=== PATIENT | female | born 1990 | race Caucasian/White ===

== ENCOUNTER → 2016-12-23 | Outpatient (CLI) | payer OTHER ==
[~2016-12-23] MED LIST: ABILIFY10 MG PO; ALBUTEROL0.09 MG/A2 IH; AMOXICILLIN500 MG PO; AMOXIL500 MG PO; BENADRYL25 M1 PO; CELEXA10 MG PO; CIPRO500 MG PO; CLARITIN-D 10 M1 T21 PO; CLEOCIN150 MG PO; CYCLOBENZAPRINE10 MG PO; DARVOCET N 1001 TAB PO; HYDROCODONE BIT1 T11 PO; LOMOTIL 0.025 M1 TA1 PO; MACRODANTIN100 M1 PO; MOTRIN600 MG PO; MOTRIN800 MG PO; NAPROSYN500 MG PO; NKHM PO; OVRAL-21 50 MCG1 TAB PO; PHENERGAN25 MG RC; PREDNICOT20 MG PO; PRILOSEC20 MG PO; PYRIDIUM200 M1 PO; SPRINTEC 35 MCG1 TA1 PO; ULTRAM50 MG PO; VICODIN 5/500 505 MG PO; ZITHROMAX Z PA250 MG PO; ZOFRAN ODT4 MG SL; ZOFRAN4 MG PO
[2016-12-23 12:44] LABS: BASO % 0.5 % (0.0-1.0); EOS # 0.6 10*3/uL (0.0-0.4); EOS % 7.2 % (1.0-4.0); HEMOGLOBIN 14.5 g/dl (12.0-16.0); LYMPH # 3.5 10*3/uL (1.3-4.4); LYMPH % 41.3 % (27.0-41.0); MEAN CELL VOLUME 91.7 fl (81.0-99.0); MEAN CORPUSCULAR HGB 30.9 pg (27.0-31.0); MEAN CORPUSCULAR HGB CONC 33.7 g/dl (33.0-37.0); MEAN PLATELET VOLUME 9.9 fl (9.6-12.3); MONO # 0.8 10*3/uL (0.1-1.0); MONO % 9.7 % (3.0-9.0); NEUT # 3.5 10*3/uL (2.3-7.9); NEUT % 41.1 % (47.0-73.0); PLATELET COUNT AUTOMATED 280 10*3/uL (130-400); RED BLOOD COUNT 4.69 10*6/uL (4.10-5.10); WHITE BLOOD COUNT 8.5 10*3/uL (4.8-10.8)
[2016-12-23 13:07] LABS: ALBUMIN 3.8 gm/dl (3.1-4.5); ALKALINE PHOSPHATASE 82 U/L (45-117); BUN 9 mg/dl (7-24); CHLORIDE 106 mmol/L (98-107); CHOLESTEROL 222 mg/dL (<200); CREATININE 0.93 mg/dL (0.55-1.02); HDL CHOLESTEROL 46 mg/dl (40-60); LDL CHOLESTEROL 153 mg/dL (9-159); SGOT/AST 18 IU/L (3-35); SGPT/ALT 23 U/L (12-78); SODIUM 140 mmol/L (136-145); TRIGLYCERIDES 116 mg/dl (<150); VLDL CHOLESTEROL 23 mg/dL (6-40)
== END | disposition home or self-care (01) ==
LOC: LAB 12:19
PROVIDERS: Psychiatry & Neurology Psychiatry
DX: F63.9 Impulse disorder, unspecified (principal); R63.5 Abnormal weight gain; R73.09 Other abnormal glucose

== ENCOUNTER → 2017-04-14 | Outpatient (CLI) | payer OTHER ==
[2017-04-14 10:53] LABS: BUN 10 mg/dl (7-24); CREATININE 0.95 mg/dL (0.55-1.02)
== END | disposition home or self-care (01) ==
LOC: LAB 10:14 → MRI 11:00
PROVIDERS: Psychiatry & Neurology Neurology
DX: Z13.89 Encounter for screening for other disorder (principal); R41.3 Other amnesia; R20.0 Anesthesia of skin; R20.2 Paresthesia of skin; R51 Headache

== ENCOUNTER → 2017-04-27 | Outpatient (CLI) | payer OTHER ==
--- NOTE | ~2017-04-27 | EEG ---
[place], [place] ELECTROENCEPHALOGRAM REPORT NAME: BOBY VALLECILLO UNIT #: [id number] ROOM: DOCTOR: SIRI LESTER, CHARMAINE ANDERSON DOS: 04/27/2017 EEG REPORT This 26-year-old woman on Zantac and Symbyax displayed the following underlying rhythms: Very well organized, synchronous, 10 Hz, 30 microvolt alpha rhythms in both posterior regions. 18 Hz, 10 microvolt beta rhythms were noted in both precentral regions. There was symmetrical attenuation of posterior alpha rhythms with eye opening. There was limited hyperventilation which produced no significant abnormalities. There was minimal driving to photic stimulation, again without abnormalities. The patient did become drowsy, progressing through stage I of somnolence. Throughout this recording, there were no focal abnormalities or epileptiform activity. IMPRESSION: Normal awake EEG. Clinical correlation was highly advised. CHARMAINE HORNER MD CM:EEG:ELECTROENCEPHALOGRAM REPORT [id number] [id number] CHARMAINE HORNER MD, JR
== END | disposition home or self-care (01) ==
LOC: CP 00:52
DX: R41.3 Other amnesia (principal)

== ENCOUNTER 2018-05-21 06:01 | Emergency (ER) | payer OTHER ==
[~2018-05-21] VITALS: Ht 162.5 cm; Wt 81.6 kg
[2018-05-21] MEDS ORDERED: Carafate1 GM PO (06:06)
[2018-05-21] MEDS ORDERED: OMEPRAZOLE40 MG PO (06:06)
[2018-05-21] MEDS ORDERED: LAMOTRIGINE100 MG PO (06:07)
[2018-05-21] MEDS ORDERED: ROBITUSSIN DM 105 ML PO (06:37)
[2018-05-21] MEDS ORDERED: ZITHROMAX250 MG PO (06:37)
[2018-05-21] MEDS ORDERED: ATIVAN1 MG PO (07:14)
== END 2018-05-21 07:15 | disposition home or self-care (01) ==
LOC: ED 06:01
DX: J40 Bronchitis, not specified as acute or chronic (principal); F41.9 Anxiety disorder, unspecified; F43.10 Post-traumatic stress disorder, unspecified; F17.200 Nicotine dependence, unspecified, uncomplicated; Z79.899 Other long term (current) drug therapy

== ENCOUNTER 2018-05-21 21:06 | Emergency (ER) | payer OTHER ==
[~2018-05-21] VITALS: Ht 162.5 cm
--- NOTE | ~2018-05-21 | EKG ---
[place], [place] ELECTROCARDIOGRAM REPORT NAME: BOBY VALLECILLO UNIT #: [id number] ROOM: DOCTOR: EPIPHANY DRAFT REPORT BIRTHDATE: [birth year] [facility] Test Date: 2018-05-21 Test Time: 21:17:25 Pat Name: BOBY VALLECILLO Department: Room: Gender: F Chrome Tanner: a[place]ty [place] : 1990 Requested By: ALESSANDRO PARIKH Order Number: [id number] Reading MD: Hernando Reyes MD Measurements Intervals [place] Rate: 112 P: 65 ID: [id number] QRS: 43 QRSD: 73 T: 20 QT: 307 QTc: 419 Interpretive Statements Sinus tachycardia Probable left atrial enlargement Electronically Signed On 05-23-2018 4:40:38 PST by Hernando Reyes MD CM:EKGRPT:ELECTROCARDIOGRAM REPORT [id number] ALESSANDRO AGUILAR DRAFT REPORT ALESSANDRO PARIKH DO
[~2018-05-21 21:06] MED LIST changes: +ATIVAN1 MG PO; +Carafate1 GM PO; +LAMOTRIGINE100 MG PO; +OMEPRAZOLE40 MG PO; +ROBITUSSIN DM 105 ML PO; +ZITHROMAX250 MG PO
[2018-05-21 21:27] LABS: BASO # 0.1 10*3/uL (0.0-0.1); BASO % 0.3 % (0.0-1.0); EOS # 0.3 10*3/uL (0.0-0.4); HEMATOCRIT 42.2 % (37.0-47.0); HEMOGLOBIN 14.2 g/dl (12.0-16.0); LYMPH # 2.4 10*3/uL (1.3-4.4); LYMPH % 16.7 % (27.0-41.0); MEAN CELL VOLUME 89.2 fl (81.0-99.0); MEAN CORPUSCULAR HGB CONC 33.6 g/dl (33.0-37.0); MEAN PLATELET VOLUME 9.4 fl (9.6-12.3); MONO # 1.5 10*3/uL (0.1-1.0); MONO % 10.1 % (3.0-9.0); NEUT # 10.1 10*3/uL (2.3-7.9); NEUT % 70.6 % (47.0-73.0); PLATELET COUNT AUTOMATED 317 10*3/uL (130-400); RED BLOOD COUNT 4.73 10*6/uL (4.10-5.10); RED CELL DISTRI WIDTH 13.4 % (0-14.5); WHITE BLOOD COUNT 14.3 10*3/uL (4.8-10.8)
[2018-05-21 21:44] LABS: ALBUMIN 3.9 gm/dl (3.1-4.5); ALKALINE PHOSPHATASE 109 U/L (45-117); BUN 8 mg/dl (7-24); CHLORIDE 107 mmol/L (98-107); CREATININE 0.92 mg/dL (0.55-1.02); POTASSIUM 3.7 mmol/L (3.5-5.1); SGOT/AST 11 IU/L (3-35); SGPT/ALT 22 U/L (12-78); SODIUM 139 mmol/L (136-145); TOTAL PROTEIN 8.2 gm/dL (6.4-8.2)
[2018-05-21 21:45] LABS: BETA-HCG, QUANT < 1.0 mIU/mL (1-3); TROPONIN I < 0.015 ng/ml (<0.045)
== END 2018-05-21 22:35 | disposition home or self-care (01) ==
LOC: ED 21:06
PROVIDERS: Student in an Organized Health Care Education/Training Program
DX: R06.02 Shortness of breath (principal); R05 Cough; R30.0 Dysuria; F17.200 Nicotine dependence, unspecified, uncomplicated; Z79.899 Other long term (current) drug therapy

== ENCOUNTER → 2018-06-16 | Outpatient (CLI) | payer OTHER | END | disposition home or self-care (01) | LOC: RAD 16:00 | DX: R06.02 Shortness of breath (principal) ==

== ENCOUNTER 2018-11-06 10:24 | Emergency (ER) | payer OTHER ==
[~2018-11-06] VITALS: Ht 162.5 cm; Wt 81.6 kg
[2018-11-06 10:54] LABS: BASO % 0.5 % (0.0-1.0); EOS # 0.4 10*3/uL (0.0-0.4); EOS % 5.8 % (1.0-4.0); HEMATOCRIT 44.5 % (37.0-47.0); LYMPH # 2.3 10*3/uL (1.3-4.4); LYMPH % 30.7 % (27.0-41.0); MEAN CORPUSCULAR HGB CONC 33.7 g/dl (33.0-37.0); MEAN PLATELET VOLUME 10.4 fl (9.6-12.3); MONO # 0.8 10*3/uL (0.1-1.0); NEUT # 3.9 10*3/uL (2.3-7.9); NEUT % 51.6 % (47.0-73.0); PLATELET COUNT AUTOMATED 296 10*3/uL (130-400); RED CELL DISTRI WIDTH 12.8 % (0-14.5); WHITE BLOOD COUNT 7.6 10*3/uL (4.8-10.8)
[2018-11-06 11:09] LABS: ACETAMINOPHEN (TYLENOL) < 5.0 ug/ml (10-30); ALBUMIN 3.8 gm/dl (3.1-4.5); ALKALINE PHOSPHATASE 94 U/L (45-117); BUN 12 mg/dl (7-24); CHLORIDE 108 mmol/L (98-107); CREATININE 0.87 mg/dL (0.55-1.02); POTASSIUM 3.8 mmol/L (3.5-5.1); SGOT/AST 20 IU/L (3-35); SGPT/ALT 32 U/L (12-78); SODIUM 139 mmol/L (136-145)
[2018-11-06 11:13] LABS: BILIRUBIN NEGATIVE (NEGATIVE); BLOOD TRACE-LYSED (NEGATIVE); CLARITY SL CLOUDY (CLEAR); COLOR YELLOW (YELLOW); GLUCOSE NEGATIVE (NEGATIVE); KETONE NEGATIVE (NEGATIVE); LEUKO ESTERASE NEGATIVE (NEGATIVE); NITRITE NEGATIVE (NEGATIVE); SPECIFIC GRAVITY 1.025 (1.005-1.030); UROBILINOGEN 0.2 E.U./dl (0.2-1.0)
[2018-11-06 11:20] LABS: URINE AMPHETAMINES < 1000 (1000ng/ml); URINE BARBITURATES < 200 (200ng/ml); URINE BENZODIAZEPINES < 200 (200ng/ml); URINE CANNABINOIDS (THC) > 50 (50ng/ml); URINE COCAINE < 300 (300ng/ml); URINE METHADONE < 300 (300ng/ml); URINE OPIATES < 300 (300ng/ml)
[2018-11-06 11:23] LABS: ETHYL ALCOHOL < 3.0 mg/dl (<3)
[2018-11-06 11:23] LABS: URINE PHENCYCLIDINE < 25 (25ng/ml)
[2018-11-06 11:30] LABS: BACTERIA 4+; EPITHELIAL CELLS 35-40; MUCOUS 3+
== END 2018-11-06 12:32 | disposition home or self-care (01) ==
LOC: ED 10:24
PROVIDERS: Nurse Practitioner Family
DX: F32.9 Major depressive disorder, single episode, unspecified (principal); F12.90 Cannabis use, unspecified, uncomplicated; F17.200 Nicotine dependence, unspecified, uncomplicated; Z79.2 Long term (current) use of antibiotics; Z79.899 Other long term (current) drug therapy; Z90.49 Acquired absence of other specified parts of digestive tract

== ENCOUNTER → 2019-01-02 | Outpatient (CLI) | payer OTHER | END | disposition home or self-care (01) | LOC: US 09:30 | DX: K21.9 Gastro-esophageal reflux disease without esophagitis (principal); Z90.49 Acquired absence of other specified parts of digestive tract ==

== ENCOUNTER → 2020-09-18 | Outpatient (CLI) | payer OTHER | END | disposition home or self-care (01) | LOC: MAMMO 09:48 | PROVIDERS: ATTEND Nurse Practitioner Women's Health | DX: N64.4 Mastodynia (principal) ==

== ENCOUNTER → 2020-12-28 | Outpatient (CLI) | payer OTHER | END | disposition home or self-care (01) | LOC: RAD 12:30 | PROVIDERS: ATTEND Nurse Practitioner Family | DX: M25.562 Pain in left knee (principal) ==

== ENCOUNTER → 2021-05-27 | Outpatient (CLI) | payer OTHER ==
[2021-05-27 13:13] LABS: BASO % 0.4 % (0.0-1.0); EOS # 0.4 10*3/uL (0.0-0.4); EOS % 3.9 % (1.0-4.0); HEMATOCRIT 43.9 % (37.0-47.0); LYMPH # 2.7 10*3/uL (1.3-4.4); LYMPH % 27.7 % (27.0-41.0); MEAN CELL VOLUME 89.2 fl (81.0-99.0); MEAN CORPUSCULAR HGB 30.1 pg (27.0-31.0); MEAN CORPUSCULAR HGB CONC 33.7 g/dl (33.0-37.0); MONO # 0.7 10*3/uL (0.1-1.0); MONO % 7.4 % (3.0-9.0); NEUT # 5.8 10*3/uL (2.3-7.9); NEUT % 60.4 % (47.0-73.0); PLATELET COUNT AUTOMATED 323 10*3/uL (130-400); RED BLOOD COUNT 4.92 10*6/uL (4.10-5.10); RED CELL DISTRI WIDTH 13.7 % (0-14.5); WHITE BLOOD COUNT 9.6 10*3/uL (4.8-10.8)
[2021-05-27 13:33] LABS: ALBUMIN 3.9 gm/dl (3.1-4.5); ALKALINE PHOSPHATASE 97 U/L (45-117); BUN 11 mg/dl (7-24); CHLORIDE 107 mmol/L (98-107); CHOLESTEROL 238 mg/dL (<200); CPK 90 U/L (26-192); CREATININE 0.83 mg/dL (0.55-1.02); LDH 149 U/L (84-246); LDL CHOLESTEROL 166 mg/dL (9-159); POTASSIUM 3.9 mmol/L (3.5-5.1); SGOT/AST 22 IU/L (3-35); SGPT/ALT 43 U/L (12-78); SODIUM 136 mmol/L (136-145); TOTAL PROTEIN 7.9 gm/dL (6.4-8.2); TRIGLYCERIDES 115 mg/dl (<150)
[2021-05-27 13:37] LABS: THYROID STIM HORMONE (HS) 0.869 uIU/ml (0.358-4.75)
== END | disposition home or self-care (01) ==
LOC: LAB 12:45
PROVIDERS: ATTEND Nurse Practitioner Family
DX: Z79.899 Other long term (current) drug therapy (principal)

== ENCOUNTER 2023-08-25 19:11 | Emergency (ER) | payer SELFPAY ==
[~2023-08-25] VITALS: Ht 162.5 cm; Wt 72.6 kg
[2023-08-25 20:09] LABS: BASO % 0.3 % (0.0-1.0); EOS % 0.3 % (1.0-4.0); HEMATOCRIT 40.4 % (37.0-47.0); LYMPH # 1.8 10*3/uL (1.3-4.4); LYMPH % 15.2 % (27.0-41.0); MEAN CELL VOLUME 87.1 fl (81.0-99.0); MEAN CORPUSCULAR HGB 28.7 pg (27.0-31.0); MEAN CORPUSCULAR HGB CONC 32.9 g/dl (33.0-37.0); MEAN PLATELET VOLUME 9.3 fl (9.6-12.3); MONO % 8.6 % (3.0-9.0); NEUT # 8.9 10*3/uL (2.3-7.9); NEUT % 75.3 % (47.0-73.0); PLATELET COUNT AUTOMATED 355 10*3/uL (130-400); RED BLOOD COUNT 4.64 10*6/uL (4.10-5.10); RED CELL DISTRI WIDTH 12.7 % (0-14.5); WHITE BLOOD COUNT 11.8 10*3/uL (4.8-10.8)
[2023-08-25 20:13] LABS: BILIRUBIN Negative (Negative); BLOOD 3+ (Negative); CLARITY Cloudy (Clear); COLOR Dark Yellow (Yellow); GLUCOSE Negative (Negative); KETONE 3+ (Negative); LEUKO ESTERASE Trace (Negative); NITRITE Negative (Negative); PH 5.5 (4.5-8.0); SPECIFIC GRAVITY >= 1.030 (1.001-1.030)
[2023-08-25 20:18] LABS: URINE AMPHETAMINES Negative (1000ng/ml); URINE BARBITURATES Negative (200ng/ml); URINE BENZODIAZEPINES Negative (200ng/ml); URINE CANNABINOIDS (THC) Positive (50ng/ml); URINE COCAINE Negative (300ng/ml); URINE METHADONE Negative (300ng/ml); URINE OPIATES Negative (300ng/ml); URINE PHENCYCLIDINE Negative (25ng/ml)
[2023-08-25 20:28] LABS: MUCOUS 4+
[2023-08-25 20:30] LABS: BUN 9 mg/dl (9-23); CHLORIDE 105 mmol/L (98-107); CPK 228 U/L (34-171); POTASSIUM 3.6 mmol/L (3.4-5.1)
[2023-08-25 20:31] LABS: ETHYL ALCOHOL < 3.0 mg/dl (<3)
[2023-08-25] MEDS ORDERED: Ondansetron Hydrochloride 4 MG TAB PO ONE (22:15)
[2023-08-25] MEDS ORDERED: ACETAMINOPHEN 325 MG TAB PO ONE (22:15)
== END 2023-08-25 22:39 | disposition home or self-care (01) ==
LOC: ED 19:11
PROVIDERS: Nurse Practitioner
DX: Z04.6 Encounter for general psychiatric examination, requested by authority (principal); F31.9 Bipolar disorder, unspecified; F41.9 Anxiety disorder, unspecified; Z98.890 Other specified postprocedural states; Z87.891 Personal history of nicotine dependence

== ENCOUNTER → 2024-01-31 | Outpatient (CLI) | payer MEDICAID | END | disposition home or self-care (01) | LOC: RAD 15:30 | PROVIDERS: ATTEND Nurse Practitioner Family | DX: M25.521 Pain in right elbow (principal) ==

== ENCOUNTER 2024-12-22 15:22 | Emergency (ER) | payer MEDICAID ==
[~2024-12-22] VITALS: Ht 162.5 cm
[2024-12-22] MEDS ORDERED: IBUPROFEN 600 MG TAB PO ONE (15:50)
[2024-12-22] MEDS ORDERED: Ondansetron Hydrochloride 4 MG TAB SL ONE (15:50)
[2024-12-22] MEDS ORDERED: ACETAMINOPHEN 325 MG TAB PO ONE (15:50)
== END 2024-12-22 17:04 | disposition home or self-care (01) ==
LOC: ED 15:22
DX: S00.11XA Contusion of right eyelid and periocular area, initial encounter (principal); S60.222A Contusion of left hand, initial encounter; Z79.899 Other long term (current) drug therapy; W22.01XA Walked into wall, initial encounter; Y93.89 Activity, other specified; Y92.89 Other specified places as the place of occurrence of the external cause; Y99.8 Other external cause status